=== PATIENT | male | born 1985 ===

== ENCOUNTER → 2018-03-29 | Outpatient (CLI) | payer OTHER | END | disposition home or self-care (01) | LOC: MRI 08:39 | DX: M25.561 Pain in right knee (principal); M71.21 Synovial cyst of popliteal space [Baker], right knee | CPT/HCPCS: 73721 ==

== ENCOUNTER 2018-11-27 11:15 | Outpatient (CLI) | payer OTHER | END 2018-11-27 11:29 | disposition home or self-care (01) | LOC: LAB 11:15 | DX: J10.1 Influenza due to other identified influenza virus with other respiratory manifestations (principal); J11.1 Influenza due to unidentified influenza virus with other respiratory manifestations ==